=== PATIENT | male | born 1940 | race Caucasian/White ===

== ENCOUNTER 2024-07-24 09:33 | Emergency (ER) | payer MEDICARE, SELFPAY ==
[2024-07-24 09:39] VITALS: BP 105/79
[2024-07-24 10:30] VITALS: BMI 34.1
[2024-07-24 10:31] LABS: Glucose - Point of Care 202 mg/dl (70-99)
[2024-07-24 10:42] VITALS: BP 137/69
[2024-07-24 10:44] LABS: % Basophils 0.4 % (0-2); % Eosinophils 0.9 % (0-6); % Immature Granulocytes 0.6 % (0-0.5); % Lymphocytes 10.4 % (20.5-51.1); % Monocytes 6.8 % (1.7-9.3); % Neutrophils 80.9 % (42.2-75.2); Absolute Basophils 0.1 10^3/uL (0-0.2); Absolute Eosinophils 0.1 10^3/uL (0-0.7); Absolute Immature Granulocytes 0.1 10^3/uL (0-0.05); Absolute Lymphocytes 1.2 10^3/uL (1.2-3.4); Absolute Monocytes 0.8 10^3/uL (0.1-0.6); Absolute Neutrophils 9.1 10^3/uL (1.4-6.5); Hematocrit 34.9 % (39.0-52.0); Mean Corp Hgb Conc. 31.5 g/dL (33.0-37.0); Mean Corpuscular Hgb 26.9 pg (27.0-31.0); Mean Corpuscular Volume 85.3 fL (80.0-94.0); Nucleated Red Blood Cells % 0 % (-); Platelet Count 276 10^3/uL (130-400); Red Blood Cell Count 4.09 10^6/uL (4.70-6.10); Red Cell Dist. Width 15.6 % (11.5-14.5); White Blood Cell Count 11.2 10^3/uL (4.8-10.8)
--- NOTE | 2024-07-24 10:49 | ED.GENMED ---
History of Present Illness
General
Chief Complaint: Rectal Bleeding
Source: patient and spouse
Exam Limitations: none
Time Seen by Provider: 07/24/24 10:17
Nursing documentation reviewed up to this point in time: agreed with
History of Present Illness
History of Present Illness:
84-year-old male presents with rectal bleeding started as loose stool yesterday about 24 hours ago multiple episodes of bright red blood no pain no fevers felt okay yesterday today said he feels weak and generally unwell no vomiting no chest pain no
shortness of breath no raw or undercooked foods no foreign travel no recent antibiotic use has had 2 colonoscopies previously had a polyp removed he tells me few years ago suffered with COVID was admitted for 3 weeks to [facility] he is
never really recovered some chronic shortness of breath and seen by pulmonary cardiology is not currently on oxygen
Past History
Past History
ED Past Medical History: HTN, Hypercholesterolemia and IDDM
ED Past Surgical History: Cholecystectomy and Other (Hiatal hernia)
Social History
Tobacco: Non-smoker
Alcohol: None
Drug: None
Personal:
Living: with family
Employment: Retired
Family History
Family History: Other
Review of Systems
Review of Systems
All Other Systems: Not applicable
Constitutional: Reports fatigue; Denies fever
EENT: Reports no symptoms
Respiratory: Reports trouble breathing (Chronic)
Cardiac: Reports no symptoms
ABD/GI: Reports diarrhea and bloody stools
: Reports no symptoms
Musculoskeletal: Reports no symptoms
Neurological: Reports dizzy and weakness
Endocrine: Reports no symptoms
Hematologic/Lymphatic: Reports no symptoms
Phy Exam
Physical Exam
Physical Exam:
Physical Exam
General: no apparent distress, not acutely ill
Neck: No jaundice
Heart: s1/s2 regular rate and rhythm, no murmur. equal radial pulses.
Lungs: no acute respiratory distress. clear bilaterally
Abdomen: Soft nontender
Rectal: Maroon guaiac positive stool
Neuro: alert and oriented. no focal neurological deficits
Skin: no rash
Psychiatric: well kept. interactive and cooperative
Extremities: no edema.
Course
Orders/Labs/Results
Orders:
Orders
07/24/24 10:24
Electrocardiogram (*1) Stat
Reason for Study: Other
Other Reason for Exam: GI Bleed
Cardiac Monitoring- Treatment ONCE
EKG- Treatment ONCE
IV Insert/Care/Rem.- Treatment PRN
07/24/24 10:29
Type+Screen Urgent
Complete Blood Count/With Diff Urgent
Comprehensive Metabolic Panel Urgent
PTT Urgent
Prothrombin Time Urgent
07/24/24 10:39
STOOL [C difficile Antigen & Toxins] Urgent
BETZY Source: Feces/Stool
Specimen Description:
Stool Culture Urgent
BETZY Source: Feces/Stool
Specimen Description:
0.9% Sodium Chloride 1000 ml [Nss] 1,000 ml IV BOLUS
07/24/24 10:57
ABO2 Urgent
BBK Wristband Number:
Associate notified that ABO2 has been ordered: [id number]
Date: 07/24/24
Time: 10:42
Cuprous Chloride Operator ID: [id number]
Abnormal Lab Results
07/24/24 07/24/24
10:29 10:30
WBC 11.2 H 10^3/uL
(4.8-10.8)
RBC 4.09 L 10^6/uL
(4.70-6.10)
Hgb 11.0 L g/dL
(13.0-18.0)
Hct 34.9 L %
(39.0-52.0)
MCH 26.9 L pg
(27.0-31.0)
MCHC 31.5 L g/dL
(33.0-37.0)
RDW 15.6 H %
(11.5-14.5)
Abs Immat Gran (auto) 0.1 H 10^3/uL
(0-0.05)
Absolute Neuts (auto) 9.1 H 10^3/uL
(1.4-6.5)
Absolute Monos (auto) 0.8 H 10^3/uL
(0.1-0.6)
Immature Gran % 0.6 H %
(0-0.5)
Neutrophils % 80.9 H %
(42.2-75.2)
Lymphocytes % 10.4 L %
(20.5-51.1)
BUN 32 H mg/dl
(9-20)
Creatinine 2.0 H mg/dL
(0.7-1.3)
Glucose 201 H mg/dl
(70-99)
Total Protein 6.0 L g/dl
(6.3-8.2)
POC Glucose 202 H mg/dl
(70-99)
07/24/24 10:29
07/24/24 10:29
Vital Signs
Initial and Last Documented VS:
Initial Vital Signs
Temp Pulse Resp BP Pulse Ox
97.7 F 95 18 105/79 98
07/24/24 09:39 07/24/24 09:39 07/24/24 09:39 07/24/24 09:39 07/24/24 09:39
Last Documented Vital Signs
Temp Pulse Resp BP Pulse Ox
97.6 F 73 15 131/54 96
07/24/24 10:41 07/24/24 12:00 07/24/24 12:00 07/24/24 12:00 07/24/24 12:00
MDM/Problems Addressed
Differential Diagnosis Includes:
Infectious AVM malignancy hemorrhoidal
MDM/Problems Addressed:
Rectal bleeding
Chronic conditions affecting care: DM
Acute Exacerbation and/or Progression of Chronic Illness: DM
*EKG
Interpreted by ED Provider?: Yes
Interpretation: normal
Comparison EKG: no comparison EKG present
Heart Rate: 78
Rate: normal
Ischemia: no ischemia
*Diamond Merchant Interpretation
Rate: normal
Interpretation: normal
Heart Rate: 78
*Critical Care Note
Total Time (30-74mins, 75-104mins- exclusive of procedures): Not Applicable
Update Note
Update Note:
Update labs noted, appear to be at his baseline feeling better after some fluids he is hungry has no abdominal pain unable to provide stool studies, I do not see clear indication for CT scanning nor antibiotics
1 PM patient remains hemodynamically stable
ED Attending Note
-
Portions of this chart may have been created with voice recognition software.� Occasional wrong word or��sound alike� substitutions may have occurred due to the inherent limitations of voice recognition software.
Discharge Plan
Departure
Patient Disposition: Home (Routine Discharge)
Date of Disposition: 07/24/24
Time of Disposition: 12:52
Patient with high blood pressure during this ER visit?: No
Condition: Good
Discharge Problem:
Bloody stools
Instructions: Bloody Stools, Adult (DC), Gastrointestinal Bleeding (DC)
Prescriptions:
No Action
rosuvastatin 10 MG tablet
10 mg PO DAILY@1700
fish oil-dha-epa 1 EACH capsule
1,200 unit PO DAILY@1700
lutein 20 MG tablet
20 mg PO DAILY@1700
metformin 500 MG tablet
1,000 mg PO BID@0800,1700
aspirin 81 MG tablet,delayed release (DR/EC)
81 mg PO DAILY
dutasteride [Avodart] 0.5 MG capsule
0.5 mg PO DAILY@1700
tamsulosin 0.4 MG capsule
0.4 mg PO DAILY@1700
Humulin N NPH Insulin KwikPen 300 UNITS/3 ML insulin pen
45 units SC BID@1400,2200
cholecalciferol (vitamin D3) 1,000 UNITS tablet
1,000 units PO DAILY@1700
omeprazole 20 MG capsule,delayed release(DR/EC)
20 mg PO DAILY@1700
famotidine 20 MG tablet
20 mg PO DAILY@1700
Referrals:
Pato Velazquez DO [Family Provider] - Next open appointment
Tomer Toussaint MD [Active] - Next open appointment
Activity Restrictions/Additional Instructions:
Drink plenty of fluids, bland diet for the next day or so nothing fatty or spicy
Return to the ER if fevers, abdominal pain, persistent bloody stools
Interventions
Interventions:
*Risk Screen - Suicide Last Done: 07/24/24 09:39
*General Assessment Last Done: 07/24/24 09:39
*Neglect/Abuse Screening Last Done: 07/24/24 10:41
ED- Fall Risk Assessment Last Done: 07/24/24 10:40
*ED COVID-19 Vaccine History Last Done: 07/24/24 09:39
AV-Behdbu-Dqcfgzurts Assessment Last Done: 07/24/24 11:00
ED- Cardiac Assessment Last Done: 07/24/24 11:00
ED- Pulmonary Assessment Last Done: 07/24/24 11:00
Discharge Date and Time
Print Language: MAURITIAN
[2024-07-24 10:51] LABS: PT 13.5 Sec (11.4-14.6)
[2024-07-24 10:52] LABS: APTT 25.4 Sec (23.4-35.0)
[2024-07-24 10:59] LABS: ALT (SGPT) 16 U/L (0-50); AST (SGOT) 17 U/L (17-59); Albumin 3.8 g/dl (3.5-5.0); Alkaline Phosphatase 105 U/L (38-126); Blood Urea Nitrogen 32 mg/dl (9-20); Calcium 8.9 mg/dl (8.4-10.2); Carbon Dioxide 23 mmol/L (22-30); Chloride 104 mmol/L (98-107); Estimated Creatinine Clearance 31 ml/min; Glucose 201 mg/dl (70-99); Potassium 4.7 mmol/L (3.5-5.1); Sodium 137 mmol/L (135-145); Total Bilirubin 0.3 mg/dl (0.2-1.3); eGFR 32.51
[2024-07-24] MEDS: NSS 1000 IV (10:59)
[2024-07-24 11:00] VITALS: BP 138/59
[2024-07-24 12:00] VITALS: BP 131/54
== END 2024-07-24 13:09 | disposition home or self-care (01) ==
LOC: EMR 09:33
PROVIDERS: EMERGENCY PHYSICIAN Emergency Medicine; FAMILY PHYSICIAN Family Medicine
DX: K92.1 Melena (principal); I10 Essential (primary) hypertension; E78.00 Pure hypercholesterolemia, unspecified; E11.9 Type 2 diabetes mellitus without complications; Z79.4 Long term (current) use of insulin; Z90.49 Acquired absence of other specified parts of digestive tract
CPT/HCPCS: 99284; 96360; 80053; 82962; 85025; 85610; 85730; 86850; 86900; 86901; 93005

== ENCOUNTER 2025-07-16 18:32 | Inpatient (IN) | payer MEDICARE, SELFPAY ==
[2025-07-16 14:47] VITALS: BP 147/66
[2025-07-16 15:49] VITALS: BMI 33.9
[2025-07-16 16:06] LABS: COVID-19 Antigen Negative (Negative)
[2025-07-16 16:45] VITALS: O2SAT 86; O2SAT 95
--- NOTE | 2025-07-16 16:58 | ED.GENMED ---
History of Present Illness
General
Chief Complaint: Cough
Time Seen by Provider: 07/16/25 16:21
History of Present Illness
History of Present Illness:
Patient is a 85-year-old man with history of diabetes, hyperlipidemia presenting to the emergency department for cough. Patient states that he tested positive for COVID last week. He has been having chills, cough congestion runny nose. Symptoms
have been persistent. He states that this feels similar to when he had pneumonia last time. No chest pain. No difficulty breathing. No nausea or vomiting..
Past History
Past History
ED Past Medical History: HTN, Hypercholesterolemia and IDDM
ED Past Surgical History: Cholecystectomy and Other (Hiatal hernia)
Social History
Tobacco: Non-smoker
Alcohol: None
Drug: None
Personal:
Living: with family
Employment: Retired
Family History
Family History: Other
Phy Exam
Physical Exam
Physical Exam:
GENERAL: in no acute distress
HEENT: normocephalic, extraocular movements intact, moist oral mucosa
NECK: normal inspection
RESPIRATORY: no respiratory distress, coarse crackles at bases
CARDIOVASCULAR: regular rate and rhythm
ABDOMEN/: soft, non-distended, non-tender to palpation, no rebound or guarding
EXTREMITIES: non-tender, no edema/swelling
NEUROLOGIC: awake and alert, moves all extremities
SKIN: warm
Course
Orders/Labs/Results
Orders:
Orders
07/16/25 15:43
COVID-19 Antigen Urgent
Source: Nasal Swab
Influenza A+B Rapid Molecular Urgent
BETZY Source: Nasal Swab
Specimen Description:
07/16/25 15:48
CXR2 [CR Chest - 2 Views ] Urgent
Comment:
Reason For Exam: cough
07/16/25 16:49
Basic Metabolic Panel Urgent
Complete Blood Count/With Diff Urgent
07/16/25 16:58
Azithromycin 500 mg IVPB NOW Azithromycin 500 mg/250 ml [Zithromax Infusion] 500 mg in 250 ml IV NOW
CefTRIAXone [Rocephin] 2,000 mg IV NOW STA
Vital Signs
Initial and Last Documented VS:
Initial Vital Signs
Temp Pulse Resp BP Pulse Ox
97.8 F 97 16 147/66 95
07/16/25 14:47 07/16/25 14:47 07/16/25 14:47 07/16/25 14:47 07/16/25 14:47
Last Documented Vital Signs
Temp Pulse Resp BP Pulse Ox
97.8 F 97 16 147/66 95
07/16/25 14:47 07/16/25 14:47 07/16/25 14:47 07/16/25 14:47 07/16/25 15:51
MDM/Problems Addressed
Differential Diagnosis Includes:
85-year-old man presenting to the emergency department with 1 week of cough congestion rhinorrhea with a positive home COVID test last week. On arrival vitals are unremarkable exam does show coarse breath sounds at the bases. Concern for pneumonia
versus viral infection. History exam not consistent with cardiac etiology. History exam not consistent with PE.. Chest x-ray per my interpretation with possible retrocardiac opacity. Ambulatory pulse ox unfortunately did decrease to 86. Patient
will need admission. Will start IV antibiotics. Discussed with hospitalist who excepted with lab work pending as well as official x-ray read. COVID here is negative.
*Pulse Oximetry
SaO2: 95
Oxygen Mode of Delivery: Room air
Patient hypoxic: no
*Critical Care Note
Total Time (30-74mins, 75-104mins- exclusive of procedures): Not Applicable
ED Attending Note
-
Portions of this chart may have been created with voice recognition software.� Occasional wrong word or��sound alike� substitutions may have occurred due to the inherent limitations of voice recognition software.
Discharge Plan
Departure
Patient Disposition: Admit
Date of Disposition: 07/16/25
Time of Disposition: 17:01
Presentation/result/management discussed w/ accepting MD/DO: Hospitalist
Discharge Problem:
Pneumonia
Prescriptions:
No Action
rosuvastatin 10 MG tablet
10 mg PO DAILY@1700
fish oil-dha-epa 1 EACH capsule
1,200 unit PO DAILY@1700
lutein 20 MG tablet
20 mg PO DAILY@1700
metformin 500 MG tablet
1,000 mg PO BID@0800,1700
aspirin 81 MG tablet,delayed release (DR/EC)
81 mg PO DAILY
dutasteride [Avodart] 0.5 MG capsule
0.5 mg PO DAILY@1700
tamsulosin 0.4 MG capsule
0.4 mg PO DAILY@1700
Humulin N NPH Insulin KwikPen 300 UNITS/3 ML insulin pen
45 units SC BID@1400,2200
cholecalciferol (vitamin D3) 1,000 UNITS tablet
1,000 units PO DAILY@1700
omeprazole 20 MG capsule,delayed release(DR/EC)
20 mg PO DAILY@1700
famotidine 20 MG tablet
20 mg PO DAILY@1700
Referrals:
Tomer Patrick MD [Family Provider, Internal Medicine]
Interventions
Interventions:
*Risk Screen - Suicide Last Done: 07/16/25 14:47
*General Assessment Last Done: 07/16/25 15:50
*Neglect/Abuse Screening Last Done: 07/16/25 14:47
*ED COVID-19 Vaccine History Last Done: 07/16/25 15:50
*ED Influenza Vaccine History Last Done: 07/16/25 15:50
[facility] Fall Risk Assessment Tool Last Done: 07/16/25 15:49
ED- Pulmonary Assessment Last Done: 07/16/25 15:51
Discharge Date and Time
Print Language: SERBIAN
--- NOTE | 2025-07-16 17:37 | HPS.HSE ---
Addendum entered and electronically signed by Beverly Gamez MD 07/16/25 18:25:
Hep subQ ordered for DVT PPx
Addendum entered and electronically signed by Beverly aGmez MD 07/16/25 18:24:
CKD III
-creatinine at baseline
Mild hyper K
-NS 500cc x 1 now, repeat labs this evening
CXR without reading of pneumonia but will treat based on clinical presentation
Original Note:
Family Physician
-
Family Physician: Tomer Patrick
Chief Complaint
-
cough and shortness of breath
History of Present Illness
Mr. Tremaine Burt is a 85 yo man with hx essential HTN, HLD, IDDM presents to the ER for persistent cough, chills.
Patient had cough/congestion last week. He then developed loss of taste and tested positive for Covid. He states he never had a covid vaccine but now interested. He was prescribed Paxlovid and completed course. He states he initially felt better
then over past couple of days has worsening cough/fatigue. He is also having diarrhea over the past couple of days.
No measured fevers. No nausea/vomiting. He is eating and drinking OK. No chest pain. No LE swelling
Medical History
Past Medical History
Past Medical History: Reports Other ( essential HTN, HLD, IDDM)
Past Surgical History: Reports Other
Social History
Tobacco: Former Smoker
Alcohol: None
Family History
Family History: Not pertinent
Allergies / Home Medications
Allergies reflects when Allergies were last updated in [facility].
Home Medications with original date entered in [facility]
Allergy/Medication List:
Allergies
Allergy/AdvReac Type Severity Reaction Status Date / Time
No Known Allergies Allergy Verified 07/16/25 14:47
Home Medications
rosuvastatin 10 mg tablet 10 mg PO DAILY@1700 High cholesterol 02/24/20
aspirin 81 mg tablet,delayed release 81 mg PO DAILY Blood clot prevention/tx 03/27/20
dutasteride 0.5 mg capsule (Avodart) 0.5 mg PO DAILY@1700 Urinary issue 03/27/20
metformin 500 mg tablet 1,000 mg PO BID@0800,1700 Diabetes 03/27/20
tamsulosin 0.4 mg capsule 0.4 mg PO DAILY@1700 Urinary issue 04/12/20
insulin NPH isoph U-100 human 100 unit/mL (3 mL) subcutaneous pen (Humulin N NPH U-100 Insulin KwikPen) 45 units SC BID@1400,2200 Diabetes 01/29/22
donepezil 5 mg tablet 5 mg PO QPM 07/16/25
Review of Systems
-
History Source: Patient
A 12 point ROS was completed and negative except as noted: Yes
Physical Exam
Vital Signs
Vital Signs
Temp Pulse Resp BP Pulse Ox
97.8 F 97 16 147/66 95
07/16/25 14:47 07/16/25 14:47 07/16/25 14:47 07/16/25 14:47 07/16/25 17:01
Physical Exam
General: No Apparent Distress
HEENT: PERRLA
Respiratory: Wheezes (mild end expiratory )
Cardiac: S1/S2 and Regular Rhythm
GI: Soft and Non Tender
Musculoskeletal: No Edema
Skin: Warm and Dry; No Rash
Neuro: AO x 3
Psych: Calm
Data Reviewed
-
Diagnostic Radiology: Report Reviewed by me
Lab Data: Labs Reviewed by me
Impression/Plan
-
Mr. Tremaine Burt is a 85 yo man with hx essential HTN, HLD, IDDM presents to the ER for persistent cough, chills. He had a positive home covid test last week.
Triage VS: T 97.8, P 97, RR 16, Bp 147/66, SpO2 95%
LABS:
Covid negative; Influenza Negative
CXR with possible retrocardiac opacity
Acute Hypoxic Respiratory Insufficiency with ambulation in setting of likely superimposed Bacterial pneumonia;
Recent Covid-19, now testing negative
-O2 sat down to 86% with ambulation
-admit to tele
-will need home O2 testing in next 1-2 days
-continue IV Ceftriaxone/Doxy (patient is on Donepezil so avoid continued Azithromycin dosing)
-mucinex BID, acapella
-sputum culture, strep pneumo ag testing, legionella testing (given report of diarrhea)
Diarrhea
-check legionella as above
-C. Diff testing, stool culture
-start probiotics
IDDM
-lower dose of NPH while in-patient; on 45 units BID at home, start with 20 units BID
-hold ASSEMBLER BRAZER Metformin
-ISS low
HLD
-statin was held while on Paxlovid, can resume in next 1-3 days
BPH - ASSEMBLER BRAZER Flomax, Dutasteride
Continue ASSEMBLER BRAZER Donepezil
Essential HTN - not on home meds, monitor
DVT PPx SCD (awaiting labs)
FULL CODE
[2025-07-16] MEDS: ZITHROMAX INFUSION 250 IV (17:56)
[2025-07-16] MEDS: ROCEPHIN 2000 MG IV (17:56)
[2025-07-16 18:06] LABS: Hematocrit 40.7 % (39.0-52.0); Hemoglobin 12.9 g/dL (13.0-18.0); Mean Corp Hgb Conc. 31.7 g/dL (33.0-37.0); Mean Corpuscular Volume 84.1 fL (80.0-94.0); Nucleated Red Blood Cells % 0 % (-); Platelet Count 406 10^3/uL (130-400); Red Cell Dist. Width 16.5 % (11.5-14.5)
[2025-07-16 18:20] LABS: Blood Urea Nitrogen 27 mg/dl (9-20); Calcium 8.8 mg/dl (8.4-10.2); Carbon Dioxide 23 mmol/L (22-30); Chloride 102 mmol/L (98-107); Estimated Creatinine Clearance 35 ml/min; Glucose 245 mg/dl (70-99); Potassium 5.9 mmol/L (3.5-5.1); Sodium 134 mmol/L (135-145); eGFR 39.26
[2025-07-16 18:38] VITALS: BP 165/75
[2025-07-16] MEDS: DUONEB 3 ML INH (18:39)
[2025-07-16] MEDS: NSS 500 IV (18:40)
[2025-07-16 19:45] VITALS: BMI 32.7
[2025-07-16 19:46] VITALS: BP 141/72
[2025-07-16] MEDS: DUONEB INH (19:46)
[2025-07-16] MEDS: ARICEPT 5 MG PO (20:25)
[2025-07-16] MEDS: MUCINEX 600 MG PO (20:26)
[2025-07-16] MEDS: NSS 1000 IV (20:26)
[2025-07-16] MEDS: HEPARIN 5000 UNITS SC (20:26)
[2025-07-16] MEDS: HUMULIN N KWIKPEN 20 UNITS SC (21:55)
[2025-07-16 21:56] LABS: Glucose - Point of Care 224 mg/dl (70-99)
[2025-07-16 22:00] VITALS: BP 105/47
[2025-07-16 22:23] LABS: Potassium 4.9 mmol/L (3.5-5.1)
[2025-07-16 23:45] VITALS: BP 135/70
[2025-07-17] VITALS (7 sets, daily range): BP systolic 105–172; BP diastolic 47–87; PULSE 92; O2SAT 94
[2025-07-17] MEDS: MELATONIN 3 MG PO (00:24)
[2025-07-17] MEDS: DUONEB 3 ML INH ×4 (07:07→20:32)
[2025-07-17 07:57] LABS: Glucose - Point of Care 138 mg/dl (70-99)
[2025-07-17] MEDS: NOVOLOG FLEXPEN-LOW RESISTANCE SC (07:58)
[2025-07-17] MEDS: HEPARIN 5000 UNITS SC ×2 (08:03→20:13)
[2025-07-17] MEDS: VISBIOME 1 CAP PO (08:03)
[2025-07-17] MEDS: MUCINEX 600 MG PO ×2 (08:03→20:13)
[2025-07-17] MEDS: ASPIR LOW (ENTERIC COATED) 81 MG PO (08:03)
[2025-07-17 08:12] LABS: Hematocrit 36.2 % (39.0-52.0); Hemoglobin 11.4 g/dL (13.0-18.0); Mean Corp Hgb Conc. 31.5 g/dL (33.0-37.0); Mean Corpuscular Volume 85.0 fL (80.0-94.0); Nucleated Red Blood Cells % 0 % (-); Platelet Count 354 10^3/uL (130-400); Red Cell Dist. Width 16.2 % (11.5-14.5)
[2025-07-17 08:28] LABS: Blood Urea Nitrogen 21 mg/dl (9-20); Calcium 8.3 mg/dl (8.4-10.2); Carbon Dioxide 24 mmol/L (22-30); Chloride 107 mmol/L (98-107); Estimated Creatinine Clearance 38 ml/min; Glucose 108 mg/dl (70-99); Magnesium 1.8 mg/dl (1.6-2.3); Potassium 4.8 mmol/L (3.5-5.1); Sodium 138 mmol/L (135-145); eGFR 42.22
--- NOTE | 2025-07-17 09:05 | W.PN.HOSP.TC ---
Today's Communication/Plan
-
CBC, CMP
Currently patient on pulmonary toileting
PT, OT consult
Probably switch the antibiotic to oral tomorrow
C. difficile result pending however the patient did not experience light watery stools or more than 5 episodes of diarrhea after the admission.
will need home O2 testing in next 1-2 days
Assessment / Plan
Assessment / Plan
85 yo man with hx essential HTN, HLD, IDDM presents to the ER for persistent cough, chills. He had a positive home covid test last week.
Covid negative; Influenza Negative
CXR with possible retrocardiac opacity
Acute Hypoxic Respiratory Insufficiency with ambulation in setting of likely superimposed Bacterial pneumonia secondary to recent COVID;
Recent Covid-19, now testing negative
-O2 sat down to 86% with ambulation
-admitted to telemetry
-will need home O2 testing in next 1-2 days
-continue IV Ceftriaxone/Doxy (patient is on Donepezil so avoid continued Azithromycin dosing due to QT prolongation)
-mucinex BID, acapella
-sputum culture, strep pneumo ag testing, legionella testing negative. (given report of diarrhea)
Diarrhea
-check legionella negative
-C. Diff stool culture testing for loose stools with watery diarrhea currently the patient is not experiencing any of GI symptoms.
-start probiotics
Insulin-dependent diabetes mellitus:
-lower dose of NPH while in-patient; on 45 units BID at home, start with 20 units BID
-hold SCRATCH FINISHER Metformin
-ISS low
Hyperlipidemia
-statin was held while on Paxlovid, can resume in next 1-3 days
Benign prostatic hyperplasia- SCRATCH FINISHER Flomax, Dutasteride
Continue SCRATCH FINISHER Donepezil
Essential hypertension- not on home meds, monitor
DVT PPx SCD, heparin subcutaneous
FULL CODE
Anticipated Discharge: 24 - 48 hours
Subjective/Interval History
-
Date of Service: July 17, 2025
85 yo man with hx essential HTN, HLD, IDDM presents to the ER for persistent cough, chills.
Patient had cough/congestion last week. He then developed loss of taste and tested positive for Covid. He states he never had a covid vaccine but now interested. He was prescribed Paxlovid and completed course. He states he initially felt better
then over past couple of days has worsening cough/fatigue. He is also having diarrhea over the past couple of days.
No measured fevers, nausea/vomiting, chest pain, LE swelling. He was eating regular food while i met him at the prerounds.
Objective Data
-
Labs:
Laboratory Results
07/16/25 07/17/25
22:03 07:33
WBC 8.2
Hgb 11.4 L
Hct 36.2 L
Plt Count 354
Sodium 138
Potassium 4.9 4.8
Chloride 107
Carbon Dioxide 24
BUN 21 H
Creatinine 1.6 H
Glucose 108 H
Calcium 8.3 L
Vital Signs:
Vital Signs
Temp Pulse Resp BP Pulse Ox
97.6 F 85 16 131/65 98
07/17/25 07:22 07/17/25 07:22 07/17/25 07:22 07/17/25 07:22 07/17/25 07:22
I&O
07/16/25 07/17/25 07/18/25
06:59 06:59 06:59
Intake Total 1080 / 1080
Output Total 700 / 700
Balance 380 / 380
Review of Systems
-
History Source: Patient
All other systems: Reviewed and negative
Physical Exam
-
HEENT: Normocephalic
Respiratory: Crackles (b/l lower lobe. )
Cardiac: Regular Rhythm and S1/S2
GI: Soft, Nontender and Nondistended
Genito-urinary: No Costovertebral Tender
Musculoskeletal: No Clubbing and No Edema
Skin: Warm
Neuro: AO x 3
Hematologic / Lymphatic: No Lymphadenopathy
Psych: Calm
--- NOTE | 2025-07-17 11:05 | CM ---
CM reviewed chart. Pt admitted for hypoxic respiratory insuff, CAP, CV+.
Met with pt at bedside. IA completed. Explained role and discussed anticipated dc plan/options.
Pt resides w/spouse in a [facility] apartment with a FF up to front door w/stairglide in place.
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 Owns RW.
Discussed home care for SN/PT but pt declining need for skilled services at this time.
Family to transport at dc.
[facility]
[address]
[phone]
[2025-07-17 11:42] LABS: Glycohemoglobin (HgbA1c) 7.7 % (4.0-5.9)
[2025-07-17 12:34] LABS: Glucose - Point of Care 290 mg/dl (70-99)
[2025-07-17] MEDS: NOVOLOG FLEXPEN-LOW RESISTANCE 3 UNITS SC (12:59)
[2025-07-17 15:16] LABS: Glucose - Point of Care 274 mg/dl (70-99)
[2025-07-17] MEDS: HUMULIN N KWIKPEN 20 UNITS SC ×2 (15:16→22:09)
[2025-07-17] MEDS: ARICEPT 5 MG PO (17:09)
[2025-07-17] MEDS: PROSCAR 5 MG PO (17:09)
[2025-07-17] MEDS: FLOMAX 0.4 MG PO (17:09)
[2025-07-17] MEDS: ROCEPHIN 1000 MG IV (17:09)
[2025-07-17 17:12] LABS: Glucose - Point of Care 233 mg/dl (70-99)
[2025-07-17] MEDS: NOVOLOG FLEXPEN-LOW RESISTANCE 2 UNITS SC (17:17)
[2025-07-17] MEDS: VIBRAMYCIN 100 MG PO (20:13)
[2025-07-17 21:58] LABS: Glucose - Point of Care 296 mg/dl (70-99)
--- NOTE | 2025-07-18 00:34 | PTCARENOTE ---
2300: Pt's BP soft at 94/65. Due to hx of orthostasis and new usage of midodrine, d/w covering DELIVERY PERSON, ordered received and pt placed on telemetry. Pt's HR on telemetry 125 reading sinus tachycardia. Afebrile, bladder scanned for 100mL. EKG performed
to confirm rhythm.
EKG reading STEMI. Pt asx, no complaints of CP/SOB/dizziness, pt c/o persistent hiccups.
Covering DELIVERY PERSON on the floor, DELIVERY PERSON reviewed EKG with data assistant, deemed NOT a STEMI.
Orders obtained for additional blood work, drawn and sent to the lab.
Additional 1x dose of midodrine obtained and given, see MAR.
0005: critical lab received from chemistry, Troponin 29.6, covering DELIVERY PERSON notified
0033: Covering DELIVERY PERSON d/w [employer] cardiology, orders for heparin gtt and ECHO in the AM received.
[2025-07-18 03:36] VITALS: BP 161/65
[2025-07-18] MEDS: DUONEB 3 ML INH ×2 (06:27→11:19)
--- NOTE | 2025-07-18 06:55 | W.PN.HOSP.TC ---
Addendum entered and electronically signed by Karin Presley MD 07/18/25 16:00:
I saw and evaluated the patient independently. I reviewed and discussed the resident�s note and agree with findings and plan as documented by Dr. Ramirez.
GENERAL: well developed, well nourished, in no apparent distress
HEENT:getting nebs
HEART: regular rate and rhythm, +S1, +S2
LUNGS : wheezing bilaterally with cough
ABDOM: soft, nontender, nondistended, + bowel sounds
EXT: no cyanosis, clubbing, or edema
NEUROLOGIC: grossly intact
Post-COVID bronchitis vs. post-COVID pneumonitis with residual cough--Hypoxic resp insufficiency with ambulation now resolved--COVID & flu negative at time of admission. Pt s/p course of paxlovid 1 wk prior. Pt O2 sat to 86% w/ambulation at time of
admission; satting >95% on RA at rest. CXR negative-- Strep pneumo, legionella negative. WBC normalized as of 07/17. S/p empiric abx for CAP starting 07/16--sputum cx with normal resp lourdes - Continue 7-day course of doxycycline (07/17pm - 07/24am)
- Duonebs - Mucinex BID, acapella
Diarrhea, resolved
IDDM - continue sliding scale insulin & NPH 20units BID; holding metformin
HLD - resume statin on discharge
BPH - continue flomax, dutasteride (home meds)
Dementia - continue donepezil
Essential HTN - controlled without meds
DVT proph-- subQ heparin
Code status-- full
Original Note:
Today's Communication/Plan
-
- Plan to discharge to home today, pending ambulatory O2 sats
- Discharge with 7day course doxycycline, prednisone taper, & instructions for OTC cough suppressant
Assessment / Plan
Assessment / Plan
85 yo M with hx of essential HTN, HLD, & IDDM who presented with persistent cough & chills following positive home covid test & trt with paxlovid the week prior, now improving s/p empiric trt for presumed CAP vs. .
#Post-COVID PNA vs. post-COVID pneumonitis vs. residual cough
#Hypoxic resp insufficiency with ambulation
COVID & flu negative at time of admission. Pt s/p course of paxlovid 1 wk prior. Pt O2 sat to 86% w ambulation at time of admission; satting >95% on RA at rest. CXR with possible retrocardiac opacity but no clear consolidation. Strep pneumo,
legionella negative. WBC normalized as of 07/17. S/p empiric abx for CAP starting 07/16.
- Sputum cx pending, f/u
- Continue 7-day course of doxycycline (14pm - 07/24am)
- Stop IV ceftriaxone, last dose today
- Duonebs
- Home O2 ambulatory testing
- Mucinex BID, acapella
#Diarrhea, resolved
Pt with diarrhea prior to admission. Was taking imodium at home. Had 1 loose BM 07/17 overnight, 1 well-formed stool 07/18.
- Cancel c diff stool cx
- Continue probiotics
#Chronic
#IDDM - continue sliding scale insulin & NPH 20units BID; holding metformin
#HLD - resume statin on discharge
#BPH - continue flomax, dutasteride (home meds)
#Dementia - continue donepezil
#HTN - controlled wo meds
#Global:
- DVT ppx: subQ heparin
- Code: full
- Diet: regular
- Dispo: to home likely today
Anticipated Discharge: Today
Subjective/Interval History
-
Date of Service: July 18, 2025
Pt states that he is feeling better today than when he came in, although still has a cough and did not sleep much last night due to cough. Denies any fever/chills. States that his appetite has improved. He had 1 episode of loose stools last night,
first since admission. This morning he had a small, well-formed BM. No new complaints.
Objective Data
-
Labs:
Laboratory Results
07/18/25
06:00
WBC Pending
Hgb Pending
Hct Pending
Plt Count Pending
Sodium Pending
Potassium Pending
Chloride Pending
Carbon Dioxide Pending
BUN Pending
Creatinine Pending
Glucose Pending
Calcium Pending
Total Bilirubin Pending
AST Pending
ALT Pending
Alkaline Phosphatase Pending
Vital Signs:
Vital Signs
Temp Pulse Resp BP Pulse Ox
98.3 F 100 20 161/65 93
07/18/25 03:36 07/18/25 06:28 07/18/25 06:28 07/18/25 03:36 07/18/25 03:36
I&O
07/16/25 07/17/25 07/18/25
06:59 06:59 06:59
Intake Total 1080 / 1080 1500 / 1500
Output Total 700 / 700 1175 / 1175
Balance 380 / 380 325 / 325
Review of Systems
-
History Source: Patient
Constitutional: Reports No Symptoms
EENT: Reports No Symptoms Reported
Respiratory: Reports Cough
Cardiac: Reports No Symptoms
Abdomen/GI: Reports Other (normal bm this am)
Genitourinary: Reports No Symptoms
Musculoskeletal: Reports No Symptoms
Skin: Reports No Symptoms
Neuro: Reports No Symptoms
Physical Exam
-
General: Well Developed, Well Nourished and No Apparent Distress
HEENT: Normocephalic and Atraumatic
Respiratory: Wheezes (minimal) and Crackles (+/- LLL crackles)
Cardiac: Regular Rhythm and S1/S2
GI: Soft, Nontender and Nondistended
Musculoskeletal: No Clubbing and No Edema
Skin: Warm and Dry
Neuro: Awake, Alert and Oriented
Psych: Calm
Data Reviewed
-
Total Time Spent with Patient (in minutes): 20
Critical Care Time (in minutes): 35
Diagnostic Radiology: Image personally visualized and interpreted and Report Reviewed by me
Labs: Labs Reviewed by me
[2025-07-18 07:28] LABS: Glucose - Point of Care 165 mg/dl (70-99)
[2025-07-18 07:30] VITALS: BP 147/70
[2025-07-18] MEDS: VISBIOME 1 CAP PO (08:16)
[2025-07-18] MEDS: ASPIR LOW (ENTERIC COATED) 81 MG PO (08:16)
[2025-07-18] MEDS: NOVOLOG FLEXPEN-LOW RESISTANCE 1 UNITS SC (08:16)
[2025-07-18] MEDS: HEPARIN 5000 UNITS SC (08:16)
[2025-07-18] MEDS: MUCINEX 600 MG PO (08:16)
[2025-07-18] MEDS: VIBRAMYCIN 100 MG PO (08:16)
[2025-07-18 08:51] LABS: Hematocrit 36.6 % (39.0-52.0); Hemoglobin 11.6 g/dL (13.0-18.0); Mean Corp Hgb Conc. 31.7 g/dL (33.0-37.0); Mean Corpuscular Volume 83.9 fL (80.0-94.0); Platelet Count 407 10^3/uL (130-400); Red Cell Dist. Width 16.0 % (11.5-14.5)
[2025-07-18 09:23] LABS: ALT (SGPT) 31 U/L (0-50); AST (SGOT) 21 U/L (17-59); Albumin 3.4 g/dl (3.5-5.0); Alkaline Phosphatase 166 U/L (38-126); Blood Urea Nitrogen 18 mg/dl (9-20); Calcium 8.7 mg/dl (8.4-10.2); Carbon Dioxide 21 mmol/L (22-30); Chloride 105 mmol/L (98-107); Estimated Creatinine Clearance 43 ml/min; Glucose 283 mg/dl (70-99); Potassium 4.5 mmol/L (3.5-5.1); Sodium 136 mmol/L (135-145); Total Protein 6.2 g/dl (6.3-8.2); eGFR 49.56
[2025-07-18 11:11] VITALS: BP 151/81
[2025-07-18 12:24] LABS: Glucose - Point of Care 322 mg/dl (70-99)
[2025-07-18] MEDS: NOVOLOG FLEXPEN-LOW RESISTANCE 4 UNITS SC (12:38)
--- NOTE | 2025-07-18 13:19 | W.PN.UPDATE ---
Update Note
Progress Note Update
Ambulatory O2 sats 95% on RA - pt cleared for discharge home
[2025-07-18 13:56] LABS: Glucose - Point of Care 329 mg/dl (70-99)
[2025-07-18] MEDS: HUMULIN N KWIKPEN 20 UNITS SC (13:58)
--- NOTE | 2025-07-18 14:58 | CM ---
Patient seen at bedside with physicians and plan is home with no needs. Patient family to transport and IMM completed, signed form placed on chart. CM will continue to follow for discharge planning needs.
Plan; home with no needs.
--- NOTE | 2025-07-18 18:28 | W.DCSUMMARY ---
Addendum entered and electronically signed by Karin Presley MD 07/19/25 07:11:
Read, reviewed, and agree. See same day progress note for additional details. Time spent coordinating care, DC planning, review of DC plan of care with resident, transition of care, review of records in EMR, med rec, consults, notes, d/w
consultants, nursing, family, and CM = 31 minutes
Original Note:
Discharge Summary
Discharge Data
Date of Admission: 07/16/25
Date of Discharge: 07/18/25
-
Pending Results: Yes (sputum culture )
Additional Pending Results:
Discharging Physician : Karin Presley; Cornelia Ramirez
Disposition : to home
Primary care physician : Tomer Patrick MD
Principal Discharge diagnosis : post-COVID PNA vs. pneumonitis vs. lingering cough
Chronic Discharge diagnosis : HTN, HLD, IDDM
Hospital Course :
On 07/16, this 85-year-old male with h/o essential hypertension, hyperlipidemia, and insulin-dependent diabetes mellitus presented with cough and exertional dyspnea.�
A week prior to presentation, he tested positive for COVID-19 and completed a Paxlovid course. He had also had diarrhea for the preceding days.
At the time of admission, he was afebrile, with negative COVID-19 & flu testing. His chest X-ray impression was possible retrocardiac opacity, and he was diagnosed with potential community-acquired pneumonia secondary to post-viral infection. Lab
tests for strep pneumonia and legionella were negative. He had leukocytosis at the time of admission and was started on empiric IV ceftriaxone & doxycycline, along with mucinex, acapella, & duonebs. Given his h/o diarrhea, he was tested for c.diff -
pt did not produce diarrhea during admission & cdiff was clinically ruled out, with test cancelled. WBC normalized and patient's cough improved slightly. Ambulatory O2 sat improved to 95% on RA (from 86% on RA on admission). On 07/18, IV antibiotics
were transitioned to complete a 7-day total course of doxycycline, ending 07/24. He was discharged on a prednisone taper (starting 40mg daily) and with instructions to take OTC cough suppressants PRN. He was instructed to followup with his PCP in 1
week. Given lack of consolidation on CXR, ddx for patient's presentation includes not only CAP but also simply lingering cough/inflammation s/p recent COVID PNA.
Important imaging findings :
CXR 07/16:
Lungs: The lungs are clear. No pleural effusion or pneumothorax.
Heart: Cardiac and mediastinal contours are unremarkable aside from minimal arch calcification.
Osseous structures: There is moderate osteophyte formation throughout the thoracic spine consistent with degenerative disease. There are couple mild compression fractures of the mid thoracic spine. These are age indeterminate.
IMPRESSION:
No acute disease of the chest.
Procedure findings : N/A
Discharge Plan
-
Patient Disposition: Home (Routine Discharge)
Discharge Diagnosis/Procedures: Post-COVID pneumonitis vs. CAP vs. prolonged cough
Condition: Good
Diet: Diabetic, Carb Controlled
Activity: No restrictions and As tolerated
Driving Restrictions: As prior to admission
Bathing Restrictions: None
Referrals:
Tomer Patrick MD [Family Provider, Internal Medicine] - in one week
Referral Note: Post-hospitalization follow-up with PCP
Additional Discharge Medication Instructions: Please take the following medications after discharge:
1. Doxycycline (antibiotic) - take 100mg (1 cap) every 12 hours, starting 07/18 evening through the morning of 07/24
2. Prednisone (steroid) - take 40mg daily for 3 days, followed by 30mg daily for 3 days, followed by 20mg daily for 3 days, followed by 10mg daily for 3 days (last day will be 07/29 if you start with 40mg on 07/18)
3. You may buy a cough medicine over the counter at your local pharmacy (ex: Robitussin) and take as directed to help with your cough symptoms
Please follow up with your primary care provider in 1 week.
Prescriptions:
New
prednisone 10 mg Tablet
See Rx Instructions .ROUTE .COMPLEX Qty: 30 0RF
Rx Instructions:
Take By Mouth:
40 mg daily x3 days, 30 mg daily x3 days,
20 mg daily x3 days, 10 mg daily x3 days.
doxycycline hyclate 100 mg capsule
100 mg PO BID Qty: 12 0RF
Rx Instructions:
Take 1cap 2x/day (every 12 hrs), starting tonight (07/18), with last dose 07/24 morning.
Continued
rosuvastatin 10 MG tablet
10 mg PO DAILY@1700
Patient Comments:
patient stopped taking this while he was on Paxlovid 07/10/25-07/15/25
metformin 500 MG tablet
1,000 mg PO BID@0800,1700
aspirin 81 MG tablet,delayed release (DR/EC)
81 mg PO DAILY
dutasteride [Avodart] 0.5 MG capsule
0.5 mg PO DAILY@1700
tamsulosin 0.4 MG capsule
0.4 mg PO DAILY@1700
Humulin N NPH Insulin KwikPen 300 UNITS/3 ML insulin pen
45 units SC BID@1400,2200
donepezil 5 mg tablet
5 mg PO QPM
Discharge Orders:
Discharge Patient (As Directed); Ordered 07/18/25
Ordered By: Cornelia Ramirez
Discharge Date and Time
Discharge Date/Time: 07/18/25 14:45
Print Language: MONGOLIAN
== END 2025-07-18 14:45 | disposition home or self-care (01) | DRG 194 ==
LOC: 2 NORTH 18:32
PROVIDERS: Student in an Organized Health Care Education/Training Program; ADMITTING PHYSICIAN Student in an Organized Health Care Education/Training Program; ATTENDING PHYSICIAN Internal Medicine; EMERGENCY PHYSICIAN Student in an Organized Health Care Education/Training Program; FAMILY PHYSICIAN Internal Medicine
DX: J18.9 Pneumonia, unspecified organism (principal); M48.54XA Collapsed vertebra, not elsewhere classified, thoracic region, initial encounter for fracture; E11.22 Type 2 diabetes mellitus with diabetic chronic kidney disease; N18.30 Chronic kidney disease, stage 3 unspecified; R19.7 Diarrhea, unspecified; N40.0 Benign prostatic hyperplasia without lower urinary tract symptoms; F03.90 Unspecified dementia, unspecified severity, without behavioral disturbance, psychotic disturbance, mood disturbance, and anxiety; M25.78 Osteophyte, vertebrae; E78.00 Pure hypercholesterolemia, unspecified; K44.9 Diaphragmatic hernia without obstruction or gangrene; I12.9 Hypertensive chronic kidney disease with stage 1 through stage 4 chronic kidney disease, or unspecified chronic kidney disease; Z79.82 Long term (current) use of aspirin; Z79.84 Long term (current) use of oral hypoglycemic drugs; Z79.4 Long term (current) use of insulin; Z90.49 Acquired absence of other specified parts of digestive tract; Z28.310 Unvaccinated for COVID-19; Z87.891 Personal history of nicotine dependence; Z86.16 Personal history of COVID-19; Z11.52 Encounter for screening for COVID-19; Z87.01 Personal history of pneumonia (recurrent)
CPT/HCPCS: 71046; 80048; 80053; 82962; 83036; 83735; 84132; 85025; 85027; 87070; 87205; 87449; 87502; 87811; 87899; 93005; 94640; 96365; 96375; 97162; 99284

== ENCOUNTER 2025-07-25 10:37 | Inpatient (IN) | payer MEDICARE, SELFPAY ==
[2025-07-25] VITALS (12 sets, daily range): BP systolic 124–174; BP diastolic 57–93; BMI 32.6; BMI 32.9
--- NOTE | 2025-07-25 05:23 | ED.GENMED ---
Addendum entered and electronically signed by Nash Cleveland DO 07/25/25 09:18:
Patient seen and evaluated by myself. Patient with hypoxia and significant shortness of breath when walking. No signs of PE or pneumonia, possibly post bronchitis causing his hypoxia. No PE. Admit to hospitalist for further treatment and
management.
Original Note:
History of Present Illness
General
Chief Complaint: Breathing Problem
Source: patient
Exam Limitations: none
Time Seen by Provider: 07/25/25 05:18
Nursing documentation reviewed up to this point in time: agreed with
History of Present Illness
History of Present Illness:
The patient is an 85-year-old male with a recent hospitalization history for pneumonia. He was discharged a week ago after a diagnosis of pneumonia, for which he completed a course of antibiotics. During the past day, the patient experienced mental
decline and confusion, reported numbness in his hands, and showed decreased oxygen saturation upon arrival at the emergency department. His spouse mentioned that since , the patient had a persistent cough and has been complaining of
shortness of breath intermittently and had been sleeping in a recliner, possibly due to breathing difficulties. While his appetite had improved over the past week, he only consumed ice cream for supper on the day of admission. Furthermore, the
patient is hard of hearing and did not bring his hearing aids due to malfunction. The patient does not have a history of COPD or heart failure. He has a history of diabetes, managed with metformin and insulin. He denies any chest pain. Minimally
responsive to questions at this time. Limited historian, providing majority of history.
Past History
Past History
ED Past Medical History: HTN, Hypercholesterolemia and IDDM
ED Past Surgical History: Cholecystectomy and Other (Hiatal hernia)
Social History
Tobacco: Non-smoker
Alcohol: None
Drug: None
Personal:
Living: with family
Employment: Retired
Family History
Family History: Other
Phy Exam
Physical Exam
Physical Exam:
GEN: Well appearing, NAD, WDWN
Eyes: PERRLA, EOMs intact, no scleral icterus
HENT: NCAT, oral mucosa moist, no JVD
Lungs: Scattered rhonchi heard throughout
Cardiac: RRR, no M/R/G, no peripheral edema. Radial pulses 2+ bilat
Abdomen: S, NT, ND, NABS, no masses or hepatosplenomegaly
Neuro: AO x 3, no focal deficits to BUE/BLE, normal sensation throughout
MSK: No gross deformity or ecchymosis. No edema. No digital clubbing
Skin: No rashes, petechiae. Normal color, no pallor or jaundice.
Psych: Calm, cooperative, proper hygiene
Scores
Heart Failure Risk
Heart Failure Risk Score: Not Applicable
Course
Orders/Labs/Results
Orders:
Orders
07/25/25 05:40
Electrocardiogram (*1) Urgent
Reason for Study: Other
Other Reason for Exam: sepsis
Cardiac Monitoring- Treatment ONCE
EKG- Treatment ONCE
Urinalysis Reflex To Culture Urgent
Date Specimen was Collected: 07/25/25
Time Specimen was Collected: 08:37
07/25/25 05:41
CT Head W/o Iv Contrast Urgent
Comment:
Reason For Exam: altered mental status
07/25/25 05:42
CT Chest PE Study Urgent
Comment:
Reason For Exam: hypoxia, shortness of breath
07/25/25 05:46
Complete Blood Count/With Diff Urgent
Comprehensive Metabolic Panel Urgent
NT-proBNP Urgent
Troponin I Urgent
Venous Blood Gas Urgent
%Oxygen/Room Air: 80
Influenza A+B Rapid Molecular Urgent
BETZY Source: Nasal Swab
Specimen Description:
Dextrose 50%-Water [Dextrose 50% Syringe] 25 grams IV NOW STA
07/25/25 07:04
COVID-19 Antigen Urgent
Source: Nasal Swab
07/25/25 08:41
Dexamethasone Sod Phosphate [Decadron] 10 mg IV NOW STA
Ipratropium/Albuterol Sulfate [Duoneb] 3 ml INH R NOW STA
Abnormal Lab Results
07/25/25 07/25/25 07/25/25
05:42 05:44 05:46
WBC 14.8 H 10^3/uL
(4.8-10.8)
MCHC 32.7 L g/dL
(33.0-37.0)
RDW 16.3 H %
(11.5-14.5)
Plt Count 408 H 10^3/uL
(130-400)
Abs Immat Gran (auto) 0.2 H 10^3/uL
(0-0.05)
Absolute Neuts (auto) 12.4 H 10^3/uL
(1.4-6.5)
Absolute Lymphs (auto) 1.1 L 10^3/uL
(1.2-3.4)
Absolute Monos (auto) 1.0 H 10^3/uL
(0.1-0.6)
Immature Gran % 1.1 H %
(0-0.5)
Neutrophils % 83.7 H %
(42.2-75.2)
Lymphocytes % 7.5 L %
(20.5-51.1)
VBG pO2 66 H mmHg
(30-50)
Chloride 108 H mmol/L
(98-107)
BUN 35 H mg/dl
(9-20)
Creatinine 1.5 H mg/dL
(0.7-1.3)
Glucose < 30 L* mg/dl
(70-99)
Alkaline Phosphatase 165 H U/L
(38-126)
Total Protein 6.0 L g/dl
(6.3-8.2)
POC Glucose 32 L* mg/dl 30 L* mg/dl
() ()
07/25/25 07/25/25 07/25/25
06:03 06:31 08:06
WBC
MCHC
RDW
Plt Count
Abs Immat Gran (auto)
Absolute Neuts (auto)
Absolute Lymphs (auto)
Absolute Monos (auto)
Immature Gran %
Neutrophils %
Lymphocytes %
VBG pO2
Chloride
BUN
Creatinine
Glucose
Alkaline Phosphatase
Total Protein
POC Glucose 165 H mg/dl 119 H mg/dl 142 H mg/dl
() () (99)
07/25/25 05:46
07/25/25 05:46
Vital Signs
Initial and Last Documented VS:
Initial Vital Signs
Temp Pulse Resp BP Pulse Ox
97.6 F 96 26 174/74 95
07/25/25 01:23 07/25/25 01:23 07/25/25 01:23 07/25/25 01:23 07/25/25 01:23
Last Documented Vital Signs
Temp Pulse Resp BP Pulse Ox
97.6 F 75 15 168/74 94
07/25/25 04:12 07/25/25 07:30 07/25/25 07:30 07/25/25 07:07 07/25/25 07:30
MDM/Problems Addressed
Differential Diagnosis Includes:
ddx include PE, pneumonia, viral syndrome, COPD, ACS
MDM/Problems Addressed:
85-year-old male presents here today with concerns of altered mental status and shortness of breath. He came in altered and was hypoxic in the 80s. I was called and seen by nursing staff. He was minimally responsive at the time and was staring
with a blank stare, followed commands but was not able to answer a lot of my historical questions. He was found to be hypoglycemic. He was given an amp of dextrose and given food. He is feeling much better and he is back to baseline, he is able
to answer my questions and reports that he was recently treated for pneumonia as well as the flu reports that ever since he has had that, he has had increasing shortness of breath he has not been ambulating because of those symptoms. We are able to
wean him down from 4 L to room air at rest, however with walking and using the bathroom, he drops into the 80s. No official diagnosis of COPD. Patient required mission for continued DuoNeb treatments, Decadron, further workup. He has never seen a
access director.
Chronic conditions affecting care:
hlp, GERD, insulin depdent diabetes
*Pulse Oximetry
SaO2: 93
Nasal Cannula flow liters per minute: 3
Oxygen Mode of Delivery: Room air
Patient hypoxic: yes
*Critical Care Note
Total Time (30-74mins, 75-104mins- exclusive of procedures): Not Applicable
Data Reviewed
Review of Other/Old Records Reveals: Records (reviewed discharge summary from 07/18/25)
Source: patient and records
Patient Management
Escalation/DeEscalation of care consider admission/obs:
admission indicated
ED Attending Note
-
Portions of this chart may have been created with voice recognition software.� Occasional wrong word or��sound alike� substitutions may have occurred due to the inherent limitations of voice recognition software.
Discharge Plan
Departure
Patient Disposition: Admit
Date of Disposition: 07/25/25
Time of Disposition: 08:46
Admit to: Med/Surg
Presentation/result/management discussed w/ accepting MD/DO: Hospitalist
Patient with high blood pressure during this ER visit?: Yes
Condition: Fair
Discharge Problem:
Acute bronchitis, Hypoxia, Altered mental status
Prescriptions:
No Action
rosuvastatin 10 MG tablet
10 mg PO DAILY@1700
Patient Comments:
patient stopped taking this while he was on Paxlovid 07/10/25-07/15/25
metformin 500 MG tablet
1,000 mg PO BID@0800,1700
aspirin 81 MG tablet,delayed release (DR/EC)
81 mg PO DAILY
dutasteride [Avodart] 0.5 MG capsule
0.5 mg PO DAILY@1700
tamsulosin 0.4 MG capsule
0.4 mg PO DAILY@1700
Humulin N NPH Insulin KwikPen 300 UNITS/3 ML insulin pen
45 units SC BID@1400,2200
donepezil 5 mg tablet
5 mg PO QPM
prednisone 10 mg Tablet
See Rx Instructions .ROUTE .COMPLEX Qty: 30 0RF
Rx Instructions:
Take By Mouth:
40 mg daily x3 days, 30 mg daily x3 days,
20 mg daily x3 days, 10 mg daily x3 days.
doxycycline hyclate 100 mg capsule
100 mg PO BID Qty: 12 0RF
Rx Instructions:
Take 1cap 2x/day (every 12 hrs), starting tonight (07/18), with last dose 07/24 morning.
Referrals:
Tomer Patrick MD [Family Provider, Internal Medicine]
Interventions
Interventions:
*General Assessment Last Done: 07/25/25 04:25
*Neglect/Abuse Screening Last Done: 07/25/25 01:23
*ED COVID-19 Vaccine History Last Done: 07/25/25 04:25
*ED Influenza Vaccine History Last Done: 07/25/25 04:25
[facility] Fall Risk Assessment Tool Last Done: 07/25/25 04:11
*Risk Screen - Suicide (C-SSRS) Last Done: 07/25/25 01:23
ED- Pulmonary Assessment Last Done: 07/25/25 07:09
ED- Cardiac Assessment Last Done: 07/25/25 07:09
Discharge Date and Time
Print Language: MALTESE
[2025-07-25 05:45] LABS: Glucose - Point of Care 30 mg/dl (70-99)
[2025-07-25 05:45] LABS: Glucose - Point of Care 32 mg/dl (70-99)
[2025-07-25] MEDS: DEXTROSE 50% SYRINGE 25 GRAMS IV (05:48)
[2025-07-25 05:59] LABS: Venous Blood Gas B.E. -1.9 mmol/L (-4 to +4); Venous Blood Gas O2 Sat % 93.0 %
[2025-07-25 06:07] LABS: Glucose - Point of Care 165 mg/dl (70-99)
[2025-07-25 06:20] LABS: ALT (SGPT) 31 U/L (0-50); AST (SGOT) 17 U/L (17-59); Albumin 3.5 g/dl (3.5-5.0); Alkaline Phosphatase 165 U/L (38-126); Blood Urea Nitrogen 35 mg/dl (9-20); Calcium 9.0 mg/dl (8.4-10.2); Carbon Dioxide 24 mmol/L (22-30); Chloride 108 mmol/L (98-107); Estimated Creatinine Clearance 40 ml/min; Glucose < 30 mg/dl (70-99); Potassium 4.2 mmol/L (3.5-5.1); Sodium 139 mmol/L (135-145); Total Protein 6.0 g/dl (6.3-8.2); eGFR 45.62
[2025-07-25 06:28] LABS: Troponin I < 0.012 ng/ml
[2025-07-25 06:33] LABS: Glucose - Point of Care 119 mg/dl (70-99)
[2025-07-25 06:37] LABS: Hematocrit 42.5 % (39.0-52.0); Hemoglobin 13.9 g/dL (13.0-18.0); Mean Corp Hgb Conc. 32.7 g/dL (33.0-37.0); Mean Corpuscular Volume 83.3 fL (80.0-94.0); Nucleated Red Blood Cells % 0 % (-); Platelet Count 408 10^3/uL (130-400); Red Cell Dist. Width 16.3 % (11.5-14.5)
[2025-07-25 07:40] LABS: COVID-19 Antigen Negative (Negative)
[2025-07-25 08:08] LABS: Glucose - Point of Care 142 mg/dl (70-99)
[2025-07-25 08:54] LABS: Urine Character Clear (Clear)
[2025-07-25] MEDS: DUONEB 3 ML INH ×4 (08:56→19:29)
[2025-07-25] MEDS: DECADRON 10 MG IV (08:56)
--- NOTE | 2025-07-25 09:14 | HPS.HSE ---
Family Physician
-
Family Physician: Tomer Patrick
Chief Complaint
-
confusion, hypoglycemia, hypoxia
History of Present Illness
HPI: 85-year-old male with PMH HTN, HLD, IDDM, recent admission for post-COVID bronchitis vs post-COVID pneumonitis (completed course of antibiotics) p/w change in MS/confusion and hypoxia.
Upon my assessment in the ER, pt is no longer confused with improved BG (he was given D50). He is conversant, AOX3.
Medical History
Past Medical History
Past Medical History: Reports Other ( essential HTN, HLD, IDDM)
Past Surgical History: Reports Other
Social History
Tobacco: Former Smoker
Alcohol: None
Living: With Family
Family History
Family History: Not pertinent
Allergies / Home Medications
Allergies reflects when Allergies were last updated in [employer].
Home Medications with original date entered in [employer]
Allergy/Medication List:
Allergies
Allergy/AdvReac Type Severity Reaction Status Date / Time
No Known Allergies Allergy Verified 07/25/25 01:27
Home Medications
rosuvastatin 10 mg tablet 10 mg PO DAILY@1700 High cholesterol 02/24/20
aspirin 81 mg tablet,delayed release 81 mg PO DAILY Blood clot prevention/tx 03/27/20
dutasteride 0.5 mg capsule (Avodart) 0.5 mg PO DAILY@1700 Urinary issue 03/27/20
metformin 500 mg tablet 1,000 mg PO BID@0800,1700 Diabetes 03/27/20
insulin NPH isoph U-100 human 100 unit/mL (3 mL) subcutaneous pen (Humulin N NPH U-100 Insulin KwikPen) 40 units SC BID@1400,2200 Diabetes 01/29/22
vit A 300 mcg-C 200 mg-E 27 mg-lutein 2 mg and minerals tablet (Eye Health Plus Lutein) 1 tab PO DAILY Supplement 07/25/25
Review of Systems
-
History Source: Patient
Constitutional: Reports No Symptoms
Respiratory: Reports Cough (mild)
Physical Exam
Vital Signs
Vital Signs
Temp Pulse Resp BP Pulse Ox
36.4 C 75 15 168/74 94
07/25/25 04:12 07/25/25 07:30 07/25/25 07:30 07/25/25 07:07 07/25/25 07:30
Physical Exam
General: Well Developed, Well Nourished, No Apparent Distress, Comfortable and Conversant (speak in full sentences)
HEENT: NormoCephalic, Moist mucous membranes and Atraumatic; No Oxygen
Respiratory: Clear and Non Labored Respirations; No Wheezes, Crackles or Accessory Resp Muscle Use
Cardiac: S1/S2 and Regular Rhythm; No Murmur or Rub
GI: Soft, Non Tender, Non Distended and Normal Bowel Sounds; No Organomegaly
Rectal: Deferred by Provider
Musculoskeletal: No Edema
Skin: Warm and Dry
Neuro: Awake, Alert and Oriented
Psych: Calm and Intact Judgment/Insight
Laboratory Results
-
07/25/25 05:46
07/25/25 05:46
Laboratory Results
Total Bilirubin 0.2 mg/dl (0.2-1.3) 07/25/25 05:46
AST 17 U/L (17-59) 07/25/25 05:46
ALT 31 U/L (0-50) 07/25/25 05:46
Alkaline Phosphatase 165 U/L (38-126) H 07/25/25 05:46
Troponin I < 0.012 ng/ml 07/25/25 05:46
Data Reviewed
-
CT Scan: Report Reviewed by me
Lab Data: Labs Reviewed by me
Impression/Plan
-
HPI: 85-year-old male with PMH HTN, HLD, IDDM, recent admission for post-COVID bronchitis vs post-COVID pneumonitis (completed course of antibiotics) p/w change in MS/confusion and hypoxia.
Upon my assessment in the ER, pt is no longer confused with improved BG (he was given D50). He is conversant, AOX3.
CT Chest:
No evidence of central pulmonary embolism.
Bibasilar subsegmental atelectasis and/or scarring.
No pneumothorax or pleural effusion.
Heterogeneous appearance of the left lobe of the thyroid. Consider dedicated elective Thyroid ultrasound.
A/P:
# Acute hypoxic resp insufficiency, 2/2 hypoglycemia with ?acute bronchitis, much resolved
# Acute metabolic encephalopathy/confusion likely due to hypoglycemia
MS improved back to baseline AOx3
Good saturation on RA in ER, can check walking pulse Ox prior to discharge
CT neg for PE
Check procalcitonin
Flu/COVID negative this admission
Cont DuoNeb ATC and PRN
s/p Decadron in ED, lung exam unrevealing and without wheezing, would observe off further steroid
# IDDM
# Hypoglycemia on admission likely due to poor PO intake with continued insulin use
Holding [employer] insulin,
cover with ISS for now
Carb control diet
# HLD
statin
# BPH
continue [employer] dutasteride
# Dementia
continue donepezil
# Essential HTN
controlled without meds
# CKD stage 3
SCr stable
DVT proph: HSQ
Code status: full
[2025-07-25 09:19] LABS: Urine Urothelial Cell 0-2 /LPF (FEW)
[2025-07-25 09:20] LABS: Urine White Cell 16-20 /HPF (0-5)
[2025-07-25 10:41] LABS: Procalcitonin < 0.05 ng/ml (0.0-0.25)
--- NOTE | 2025-07-25 11:52 | EDCM ---
Reviewed chart and met with pt and son bedside in ED. Pt lives with his in 2nd floor apartment, DIL lives downstairs.
Has stair glide, independent in ADLs, personal care and ambulation, uses cane, also has RW available if needed.
Confirms prescription coverage.
Hx HH, unsure of agency, no hx SNF
PCP: Pato Velazquez
Pharmacy: [facility] [address]
Anticipate discharge home, CM will continue to follow for any discharge planning needs.
[2025-07-25] MEDS: NOVOLOG FLEXPEN-LOW RESISTANCE SC ×2 (13:22→17:39)
[2025-07-25 13:23] LABS: Glucose - Point of Care 144 mg/dl (70-99)
[2025-07-25] MEDS: CRESTOR 10 MG PO (16:24)
[2025-07-25] MEDS: PROSCAR 5 MG PO (16:25)
[2025-07-25 16:47] LABS: Glucose - Point of Care 477 mg/dl (70-99)
[2025-07-25 17:20] LABS: Glucose 483 mg/dl (70-99)
--- NOTE | 2025-07-25 17:39 | W.PN.UPDATE ---
Update Note
Progress Note Update
Called by RN about blood glucose greater than 400. On chart review the patient's blood glucose was less than 30 earlier today. At this time I have placed an order for insulin aspart 12 units x 1. I have instructed the RN to not give sliding scale
in addition to this.
[2025-07-25] MEDS: NOVOLOG FLEXPEN 12 UNITS SC (17:40)
[2025-07-25] MEDS: HEPARIN 5000 UNITS SC (19:39)
[2025-07-25 19:46] LABS: Glucose - Point of Care 575 mg/dl (70-99)
[2025-07-25 20:24] LABS: Glucose 570 mg/dl (70-99)
--- NOTE | 2025-07-25 21:05 | W.PN.UPDATE ---
Update Note
Progress Note Update
15 units novolog
[2025-07-25] MEDS: NOVOLOG FLEXPEN 15 UNITS SC (21:20)
[2025-07-25 23:22] LABS: Glucose - Point of Care 381 mg/dl (70-99)
[2025-07-25] MEDS: NOVOLOG FLEXPEN 5 UNITS SC (23:27)
[2025-07-26 01:41] LABS: Glucose - Point of Care 137 mg/dl (70-99)
[2025-07-26 06:07] LABS: Glucose - Point of Care 137 mg/dl (70-99)
[2025-07-26 06:52] LABS: Hematocrit 39.0 % (39.0-52.0); Hemoglobin 12.8 g/dL (13.0-18.0); Mean Corp Hgb Conc. 32.8 g/dL (33.0-37.0); Mean Corpuscular Volume 80.9 fL (80.0-94.0); Platelet Count 374 10^3/uL (130-400); Red Cell Dist. Width 16.3 % (11.5-14.5)
[2025-07-26] MEDS: DUONEB 3 ML INH ×2 (07:03→10:41)
[2025-07-26 07:09] LABS: Blood Urea Nitrogen 36 mg/dl (9-20); Calcium 8.9 mg/dl (8.4-10.2); Carbon Dioxide 23 mmol/L (22-30); Chloride 102 mmol/L (98-107); Estimated Creatinine Clearance 39 ml/min; Glucose 121 mg/dl (70-99); Magnesium 2.0 mg/dl (1.6-2.3); Potassium 5.0 mmol/L (3.5-5.1); Sodium 132 mmol/L (135-145); eGFR 45.62
[2025-07-26 07:13] LABS: Glucose - Point of Care 150 mg/dl (70-99)
[2025-07-26 07:50] VITALS: BP 150/73
[2025-07-26] MEDS: NOVOLOG FLEXPEN-LOW RESISTANCE 1 UNITS SC (08:47)
[2025-07-26] MEDS: HEPARIN 5000 UNITS SC ×2 (08:48→19:44)
[2025-07-26] MEDS: ASPIR LOW (ENTERIC COATED) 81 MG PO (08:48)
--- NOTE | 2025-07-26 09:10 | W.PN.HOSP.TC ---
Today's Communication/Plan
-
see A/P
Assessment / Plan
Assessment / Plan
HPI: 85-year-old male with PMH HTN, HLD, IDDM, recent admission for post-COVID bronchitis vs post-COVID pneumonitis (completed course of antibiotics) p/w change in MS/confusion and hypoxia.
Upon my assessment in the ER, pt is no longer confused with improved BG (he was given D50). He is conversant, AOX3.
CT Chest:
No evidence of central pulmonary embolism.
Bibasilar subsegmental atelectasis and/or scarring.
No pneumothorax or pleural effusion.
Heterogeneous appearance of the left lobe of the thyroid. Consider dedicated elective Thyroid ultrasound.
A/P:
# Acute hypoxic resp insufficiency, 2/2 hypoglycemia with ?acute bronchitis, resolved
# Acute metabolic encephalopathy/confusion likely due to hypoglycemia, resolved
MS improved back to baseline AOx3
Good saturation on RA in ER, check walking pulse Ox today
CT neg for PE, procalcitonin negative, Flu/COVID negative this admission
Cont DuoNeb ATC and PRN
s/p Decadron in ED, lung exam unrevealing and without wheezing, observe off further steroid
# IDDM
# Hypoglycemia on admission likely due to poor PO intake with continued insulin use
Noted development of hyperglycemia
resume decreased dose of FURNITURE PACKER insulin NPH, start 5 units BID (FURNITURE PACKER 40 units BID)
cover with ISS for now
Carb control diet
# Leucocytosis suspect 2/2 steroid
Monitor
Urine culture was sent from admission, follow up
# HLD
statin
# BPH
continue FURNITURE PACKER dutasteride
# Dementia
continue donepezil
# Essential HTN
controlled without meds
# CKD stage 3
SCr stable
DVT proph: HSQ
Code status: full
Dispo: PT eval
updated son on the phone
Anticipated Discharge: Within 24 hours
Subjective/Interval History
-
Date of Service: July 26, 2025
Objective Data
-
Labs:
Laboratory Results
07/26/25
06:20
WBC 18.0 H
Hgb 12.8 L
Hct 39.0
Plt Count 374
Sodium 132 L
Potassium 5.0
Chloride 102
Carbon Dioxide 23
BUN 36 H
Creatinine 1.5 H
Glucose 121 H
Calcium 8.9
Vital Signs:
Vital Signs
Temp Pulse Resp BP Pulse Ox
36.7 C 81 18 150/73 97
07/26/25 07:50 07/26/25 07:50 07/26/25 07:50 07/26/25 07:50 07/26/25 07:50
I&O
07/25/25 07/26/25 07/27/25
06:59 06:59 06:59
Intake Total 1260 / 1260
Output Total 1550 / 1550
Balance -290 / -290
--- NOTE | 2025-07-26 11:23 | CM ---
Patient seen at bedside in [address] [place] [address]. Patient stated that he needs to access his apartment with 12 steps but has a chair lift. CM will continue to follow for home O2 assessment and watch for possible VN needs. CM will continue to follow for discharge
planning needs.
Plan; home with no needs vs home with VN watch for possible home O2 needs.
[2025-07-26 12:16] LABS: Glucose - Point of Care 385 mg/dl (70-99)
[2025-07-26] MEDS: HUMULIN N KWIKPEN 5 UNITS SC (13:31)
[2025-07-26] MEDS: NOVOLOG FLEXPEN-LOW RESISTANCE 5 UNITS SC (13:31)
--- NOTE | 2025-07-26 13:49 | PN.DE.MGMTRT ---
Insulin Management
- -
07/26/2025: Diabetes Management Consult
85 year old male with PMH: HTN, HLD, IDDM, recent admission for post-COVID bronchitis vs post-COVID pneumonitis (completed course of antibiotics) p/w change in MS/confusion and Acute hypoxic resp insufficiency, 2/2 acute bronchitis and hypoglycemia.
Upon my assessment in the ER, he was noted for hypoglycemia, with blood glucose of 32, likely due to poor PO intake with continued insulin use.
Patient was treated with IV steroids with subsequent Hyperglycemia. His mental status has improved back to baseline AOx3.
He was taking NPH 44 units @ 1400 and 2200 and Metformin 1000 mg BID prior to admission. A1C 7.7%, Cr 1.5, eGFR 45.62
Pt awake, alert, oriented, sitting up in chair, offers no complaints, able to discuss diabetes care plan
States he has a meter but has not tested his blood sugar in a long time and does not adhere to a diabetic diet. He sees his PCP for routine diabetes care.
States that he did not eat dinner the night before the event but took his scheduled 44 units of NPH at bedtime and believes that was the cause of the hypoglycemic episode.
His pre-dinner glucose trended up to 487 and he was treated with 12 units of aspart, his glucose remained elevated up to 570 @19:59 and he received an additional 15 units of aspart. at 23:21 his glucose had improved to 381 and 137@01:38.
Today his pre-lunch glucose was 385, Dr. Benz has ordered NPH 5 units which has been administered and 15 units @ 1400.
Will resume Metformin 1000mg BID and NPH 44 units @2200. Then Resume his home dose of 44 units BID @ 1400 and 2200.
Offered manual meter to pt which he declined stating he will not be able to poke his fingers.
Instructed pt to followup with PCP for CGM script, all information provided to patient on his form and encouraged him to familiarize himself with the diesel mechanic construction and operation of the continuos glucose monitor.
Discussed with Nurse. Will cont to follow
Diabetes History
- -
Type of Diabetes: 2 requiring insulin
Pre-Admission Diabetes Regimen
07/26/25
06:20
Creatinine 1.5 H
Insulin Pump Settings
IP Diabetes Regimen
07/25/25 07/25/25 07/25/25
16:45 16:57 19:44
Glucose 483 H*
POC Glucose 477 H* 575 H*
07/25/25 07/25/25 07/26/25
19:59 23:21 01:38
Glucose 570 H*
POC Glucose 381 H 137 H
07/26/25 07/26/25 07/26/25
06:06 06:20 07:12
Glucose 121 H
POC Glucose 137 H 150 H
07/26/25
12:15
Glucose
POC Glucose 385 H
Meal type: Dinner
Amount consumed: 100%
Patient Education
[2025-07-26] MEDS: HUMULIN N KWIKPEN 15 UNITS SC (14:30)
[2025-07-26 15:07] VITALS: BP 131/62
[2025-07-26] MEDS: GLUCOPHAGE 1000 MG PO (17:38)
[2025-07-26] MEDS: CRESTOR 10 MG PO (17:38)
[2025-07-26] MEDS: PROSCAR 5 MG PO (17:39)
[2025-07-26] MEDS: NOVOLOG FLEXPEN-LOW RESISTANCE 3 UNITS SC (17:42)
[2025-07-26 17:43] LABS: Glucose - Point of Care 259 mg/dl (70-99)
[2025-07-26] MEDS: TUMS CHEWABLE TABLET 400 MG PO (18:11)
[2025-07-26 21:28] LABS: Glucose - Point of Care 257 mg/dl (70-99)
[2025-07-26] MEDS: HUMULIN N KWIKPEN 44 UNITS SC (21:35)
[2025-07-26] MEDS: MELATONIN 5 MG PO (21:37)
[2025-07-26 23:09] VITALS: BP 155/74
[2025-07-27 04:04] LABS: Glucose - Point of Care 123 mg/dl (70-99)
--- NOTE | 2025-07-27 07:32 | PN.DE.MGMTRT ---
Addendum entered and electronically signed by STEFAN Le 07/27/25 09:39:
Pt states he was symptomatic with glucose of 120's, states he does not generally eat a big dinner. he eats snacks for dinner sometime and ends up not requiring too much insulin at bedtime.
Will reduce HS dose from 44 units of 30 units.
Rx for Blood glucose sensor- CGM Panfilo 3 plus has been sent to pt's pharmacy.
Original Note:
Insulin Management
- -
07/27/2025: Diabetes Management Follow up
85 year old male with PMH: HTN, HLD, IDDM, recent admission for post-COVID bronchitis vs post-COVID pneumonitis (completed course of antibiotics) p/w change in MS/confusion and Acute hypoxic resp insufficiency, 2/2 acute bronchitis and hypoglycemia.
Upon my assessment in the ER, he was noted for hypoglycemia, with blood glucose of 32, likely due to poor PO intake with continued insulin use.
Patient was treated with IV steroids with subsequent Hyperglycemia. His mental status has improved back to baseline AOx3.
He was taking NPH 44 units @ 1400 and 2200 and Metformin 1000 mg BID prior to admission. A1C 7.7%, Cr 1.5, eGFR 45.62
States he has a meter but has not tested his blood sugar in a long time and does not adhere to a diabetic diet. He sees his PCP for routine diabetes care.
States that he did not eat dinner the night before the event but took his scheduled 44 units of NPH at bedtime and believes that was the cause of the hypoglycemic episode.
Pt awake, alert, oriented, sitting up in chair, offers no complaints, able to discuss diabetes care plan
Received NPH 20 units @ 1400, pre-dinner glucose was 259, HS glucose 257, received 44 units @ 2200, FBG 123 toady
Will resume his out patient regimen NPH 44 units @ 1400 and 2200 with Metformin 1000 mg BID.
Offered manual meter to pt which he declined stating he will not be able to poke his fingers.
Instructed pt to followup with PCP for CGM script, all information provided to patient on his form and encouraged him to familiarize himself with the mechanical spreader operator and operation of the continuos glucose monitor.
Discussed with Nurse. Will cont to follow
Diabetes History
- -
Type of Diabetes: 2 requiring insulin
Pre-Admission Diabetes Regimen
Insulin Pump Settings
IP Diabetes Regimen
07/26/25 07/26/25 07/26/25
12:15 17:41 21:26
POC Glucose 385 H 259 H 257 H
07/27/25
04:01
POC Glucose 123 H
Meal type: Lunch
Meal type: Breakfast
Amount consumed: 100%
Amount consumed: 100%
Patient Education
[2025-07-27 07:40] VITALS: BP 140/78
[2025-07-27 07:57] LABS: Glucose - Point of Care 130 mg/dl (70-99)
[2025-07-27 08:05] LABS: Hematocrit 39.6 % (39.0-52.0); Hemoglobin 13.1 g/dL (13.0-18.0); Mean Corp Hgb Conc. 33.1 g/dL (33.0-37.0); Mean Corpuscular Volume 81.8 fL (80.0-94.0); Platelet Count 334 10^3/uL (130-400); Red Cell Dist. Width 16.7 % (11.5-14.5)
[2025-07-27] MEDS: NOVOLOG FLEXPEN-LOW RESISTANCE SC (08:45)
[2025-07-27] MEDS: GLUCOPHAGE 1000 MG PO (08:46)
[2025-07-27] MEDS: ASPIR LOW (ENTERIC COATED) 81 MG PO (08:46)
[2025-07-27] MEDS: HEPARIN 5000 UNITS SC (08:46)
[2025-07-27 08:49] LABS: Blood Urea Nitrogen 32 mg/dl (9-20); Calcium 8.5 mg/dl (8.4-10.2); Carbon Dioxide 25 mmol/L (22-30); Chloride 100 mmol/L (98-107); Estimated Creatinine Clearance 39 ml/min; Glucose 116 mg/dl (70-99); Potassium 4.9 mmol/L (3.5-5.1); Sodium 132 mmol/L (135-145); eGFR 45.62
--- NOTE | 2025-07-27 11:04 | W.PN.HOSP.TC ---
Addendum entered and electronically signed by Elena Benz MD 07/27/25 13:26:
# Hyponatremia
Original Note:
Today's Communication/Plan
-
see A/P
DC home today
Assessment / Plan
Assessment / Plan
HPI: 85-year-old male with PMH HTN, HLD, IDDM, recent admission for post-COVID bronchitis vs post-COVID pneumonitis (completed course of antibiotics) p/w change in MS/confusion and hypoxia.
Upon my assessment in the ER, pt is no longer confused with improved BG (he was given D50). He is conversant, AOX3.
CT Chest:
No evidence of central pulmonary embolism.
Bibasilar subsegmental atelectasis and/or scarring.
No pneumothorax or pleural effusion.
Heterogeneous appearance of the left lobe of the thyroid. Consider dedicated elective Thyroid ultrasound.
A/P:
# Acute hypoxic resp insufficiency, 2/2 hypoglycemia with ?acute bronchitis, resolved
# Acute metabolic encephalopathy/confusion likely due to hypoglycemia, resolved
MS improved back to baseline AOx3
Good saturation on RA in ER, walking pulse Ox 07/26 indicated no need for home O2
CT neg for PE, procalcitonin negative, Flu/COVID negative this admission
Cont DuoNeb ATC and PRN
s/p Decadron in ED, lung exam unrevealing and without wheezing, observe off further steroid
# IDDM
# Hypoglycemia on admission likely due to poor PO intake with continued insulin use
Noted development of hyperglycemia
Cont SUPERVISOR DRAWING insulin NPH, adjust to 44 units at 2 pm, 30 units at 10 pm- pt and son informed of the change
cover with ISS for now
Carb control diet
Appreciate DM COSMETIC MAKER input
# Leucocytosis suspect 2/2 steroid
Monitor
Urine culture sent from admission showed no growth
# HLD
statin
# BPH
continue SUPERVISOR DRAWING dutasteride
# Dementia
continue donepezil
# Essential HTN
controlled without meds
# CKD stage 3
SCr stable
DVT proph: HSQ
Code status: full
Dispo: PT recc HH
updated son on the phone
Anticipated Discharge: Today
Subjective/Interval History
-
Date of Service: July 27, 2025
Objective Data
-
Labs:
Laboratory Results
07/27/25
07:09
WBC 16.1 H
Hgb 13.1
Hct 39.6
Plt Count 334
Sodium 132 L
Potassium 4.9
Chloride 100
Carbon Dioxide 25
BUN 32 H
Creatinine 1.5 H
Glucose 116 H
Calcium 8.5
Vital Signs:
Vital Signs
Temp Pulse Resp BP Pulse Ox
36.6 C 86 16 140/78 98
07/27/25 07:40 07/27/25 07:40 07/27/25 07:40 07/27/25 07:40 07/27/25 07:40
I&O
07/26/25 07/27/25 07/28/25
06:59 06:59 06:59
Intake Total 1260 / 1260 510 / 510
Output Total 1550 / 1550 1420 / 1420
Balance -290 / -290 -910 / -910
Review of Systems
-
History Source: Patient
All other systems: Reviewed and negative
Physical Exam
-
General: Well Developed, Well Nourished, No Apparent Distress, Comfortable and Conversant
HEENT: Normocephalic and Atraumatic
Respiratory: Clear to Auscultation and Non Labored Respirations; Negative Accessory Resp Muscle Use
Cardiac: Regular Rhythm and S1/S2
GI: Soft, Nontender and Nondistended
Musculoskeletal: No Clubbing
Skin: Warm and Dry
Neuro: Awake and Alert
Psych: Calm and Intact Judgement/Insight
Data Reviewed
-
Labs: Labs Reviewed by me
--- NOTE | 2025-07-27 11:37 | PN.CDI ---
CDI
- -
CDI:
Physician Documentation Request
Admit Date: 07/25/25 10:37
Dear Doctor Demar,
Please review the following and provide your response in the progress notes.
Clinical Indicators:
Pt admitted with DM with hypoglycemia /metabolic encephalopathy
Sodium levels are as below
Laboratory Tests
07/26/25 07/27/25
06:20 07:09
Sodium 132 L 132 L
Based on the above, could you clarify in the progress notes, the appropriate diagnosis, if significant, that supports the above abnormalities and additional evaluation, monitoring and/or treatment rendered:
Hyponatremia
Abnormal lab value
Other ( please specify)
Use of terms such as suspected, likely, concern for, or probable (associated with a specific diagnosis that is being evaluated, monitored, or treated as if it exists) are acceptable and can be coded in the inpatient setting, when documented at the
time of discharge.
Thank you,
Kaela Silver RN
CDI Specialist
[employer]
Please use your independent medical judgment in providing your response.
--- NOTE | 2025-07-27 11:54 | CM ---
Patient seen at bedside on 2 . Patient for discharge home today. Patient declined VN. IMM form completed and signed form placed on chart. Patient son coming to transport home. CM will continue to follow for discharge planning needs.
Plan; home with no needs
[2025-07-27 11:55] LABS: Glucose - Point of Care 138 mg/dl (70-99)
--- NOTE | 2025-07-27 14:19 | W.DCSUMMARY ---
Discharge Summary
Discharge Data
Date of Admission: 07/25/25
Date of Discharge: 07/27/25
Total time spent discharging patient (in min): 40
-
Pending Results: No
Hospital Course
Principal Diagnosis:
Acute hypoxic respiratory insufficiency and acute metabolic encephalopathy/confusion likely due to hypoglycemia
Hypoglycemia on admission likely due to poor PO intake with continued insulin use
Chronic Diagnoses:�
IDDM
HLD
BPH, on dutasteride
Dementia, on donepezil
Essential HTN, controlled without meds
CKD stage 3
Consultations:�
Diabetes nurse practitioner
Procedures:�
None
Clinical course:�
This is a 85-year-old male with past medical history as stated above, who presented with confusion and hypoxia.
He was also found to be hypoglycemic which resolved after treatment with dextrose 50.
Problem 1:
Acute hypoxic respiratory insufficiency and acute metabolic encephalopathy/confusion likely due to hypoglycemia.
His mental status improved back to baseline AO x 3.
He was only briefly on oxygen, which was very quickly weaned off, and he had good saturation on room air.
His blood glucose also improved following treatment.
His appetite improved and he was restarted with prior to admission insulin NPH, but dose adjusted at: 44 units at 2 PM (same as prior to admission), and 30 units at 10 PM (decreased from 44 units prior to admission).
As for the rest of his medical problems, they were stable during his hospital stay.
Discharge Plan
-
Patient Disposition: Home with Home Care
Discharge Diagnosis/Procedures: Acute hypoxic respiratory insufficiency likely due to hypoglycemia (resolved),
Hypoglycemia on admission likely due to poor oral intake with continued insulin use
Condition: Fair
Diet: As tolerated
Activity: As tolerated
Driving Restrictions: As prior to admission
Referrals:
Tomer Patrick MD [Family Provider, Internal Medicine] - in less than 1 week
Additional Discharge Medication Instructions: insulin NPH adjust to:
44 units at 2 pm, and 30 units at 10 pm
Prescriptions:
New
(DME) FreeStyle Panfilo 3 Plus Sensor Device
Qty: 1 0RF
Rx Instructions:
Apply to back of arm every 2 weeks
Continued
rosuvastatin 10 MG tablet
10 mg PO DAILY@1700
Patient Comments:
patient stopped taking this while he was on Paxlovid 07/10/25-07/15/25
metformin 500 MG tablet
1,000 mg PO BID@0800,1700
aspirin 81 MG tablet,delayed release (DR/EC)
81 mg PO DAILY
dutasteride [Avodart] 0.5 MG capsule
0.5 mg PO DAILY@1700
Eye Health Plus Lutein 300 mcg-200 mg-27 mg-2 mg Tablet
1 tab PO DAILY
Changed
Humulin N NPH Insulin KwikPen 300 UNITS/3 ML insulin pen
See Rx Instructions .ROUTE .COMPLEX Qty: 15 0RF
Patient Comments:
Rx label states: 45 units BID, patient told me he takes 40 units BID (@14:00, 22:00)
Rx Instructions:
44 units at 2 pm, 30 units at 10 pm
Discharge Orders:
Discharge Patient (As Directed); Ordered 07/27/25
Ordered By: Elena Benz
Discharge Date and Time
Discharge Date/Time: 07/27/25 12:47
Print Language: GREENLAND[place]
== END 2025-07-27 12:47 | disposition home or self-care (01) | DRG 637 ==
LOC: 2 NORTH 10:37
PROVIDERS: Physician Assistant; ADMITTING PHYSICIAN Internal Medicine; EMERGENCY PHYSICIAN Emergency Medicine; FAMILY PHYSICIAN Internal Medicine
DX: E11.649 Type 2 diabetes mellitus with hypoglycemia without coma (principal); G93.41 Metabolic encephalopathy; E87.1 Hypo-osmolality and hyponatremia; R09.02 Hypoxemia; N18.30 Chronic kidney disease, stage 3 unspecified; E11.22 Type 2 diabetes mellitus with diabetic chronic kidney disease; R06.89 Other abnormalities of breathing; E78.00 Pure hypercholesterolemia, unspecified; F03.90 Unspecified dementia, unspecified severity, without behavioral disturbance, psychotic disturbance, mood disturbance, and anxiety; N40.0 Benign prostatic hyperplasia without lower urinary tract symptoms; I12.9 Hypertensive chronic kidney disease with stage 1 through stage 4 chronic kidney disease, or unspecified chronic kidney disease; Z11.52 Encounter for screening for COVID-19; J20.9 Acute bronchitis, unspecified; Z87.891 Personal history of nicotine dependence; Z79.4 Long term (current) use of insulin; Z79.84 Long term (current) use of oral hypoglycemic drugs
CPT/HCPCS: 70450; 71275; 80048; 80053; 81003; 81015; 82805; 82947; 82962; 83735; 83880; 84145; 84484; 85025; 85027; 87086; 87502; 87811; 93005; 94640; 94761; 96374; 96375; 97162; 99285; Q9967